=== PATIENT | male | born 1975 ===

== ENCOUNTER 2020-06-20 09:07 | Emergency (ER) | payer OTHER ==
[2020-06-20 09:36] LABS: CHLORIDE,CL 101 mmol/L (98-107); SODIUM,NA 140 mmol/L (136-145)
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
== END 2020-06-20 10:20 | disposition home or self-care (01) ==
LOC: LL.ED 09:07
DX: M54.2 Cervicalgia (principal); M79.621 Pain in right upper arm; V67.5XXA Driver of heavy transport vehicle injured in collision with fixed or stationary object in traffic accident, initial encounter; Y92.410 Unspecified street and highway as the place of occurrence of the external cause
CPT/HCPCS: 36415; 70450; 71045; 72125; 72170; 80053; 85025; 99284-25